=== PATIENT | female | born 1970 | race Hispanic/Latino ===

== ENCOUNTER 2019-06-23 02:16 | Emergency (ER) | payer OTHER ==
[~2019-06-23] VITALS: Ht 162.6 cm; Wt 104.3 kg
[2019-06-23] MEDS ORDERED: NITROGLYCERIN 2% OINT 1 GM PKT TOP ONE (02:30)
[2019-06-23] MEDS ORDERED: ASPIRIN 81 MG CHEW TAB PO ONE (02:30)
[2019-06-23] MEDS ORDERED: FAMOTIDINE 20 MG/2 ML VIAL IV ONE (02:30)
[2019-06-23] MEDS ORDERED: ACETAMINOPHEN 325 MG TAB PO ONE (02:30)
[2019-06-23 02:55] LABS: BASOPHILS % 0.4 % (0.0-1.0); EOSINOPHILS # (AUTO) 0.1 (0.0-0.4); EOSINOPHILS % 1.2 % (0.0-6.0); HEMATOCRIT 38.4 % (34.2-44.1); HEMOGLOBIN 11.8 g/dL (12.0-16.0); LYMPHOCYTES # (AUTO) 1.8 (1.0-3.2); LYMPHOCYTES % 22.5 % (18.0-39.1); MEAN CORPUSCULAR HEMOGLOBIN 24.7 pg (28-32); MEAN CORPUSCULAR HGB CONC 30.7 g/dL (31-35); MEAN CORPUSCULAR VOLUME 80.3 fL (81-99); MONOCYTES # (AUTO) 0.7 (0.2-0.8); MONOCYTES % 8.6 % (4.4-11.3); NEUTROPHILS # (AUTO) 5.4 (2.1-6.9); NEUTROPHILS % 66.9 % (38.7-80.0); PLATELET COUNT 346 x10e3/uL (140-360); RED BLOOD COUNT 4.78 x10e6/uL (3.6-5.1); RED CELL DISTRIBUTION WIDTH 15.9 % (11.7-14.4)
[2019-06-23 03:08] LABS: ALANINE AMINOTRANSFERASE 18 IU/L (0-55); ALBUMIN 3.7 g/dL (3.5-5.0); ALKALINE PHOSPHATASE 63 IU/L (40-150); ANION GAP 12.4 mmol/L (8-16); BLOOD UREA NITROGEN 18 mg/dL (7-26); BUN/CREATININE RATIO 22 (6-25); CALCIUM 9.1 mg/dL (8.4-10.2); CARBON DIOXIDE 26 mmol/L (22-29); CHLORIDE 101 mmol/L (98-107); CREATINE KINASE 110 IU/L (29-168); CREATININE, SERUM 0.82 mg/dL (0.57-1.11); EST GLOMERULAR FILTRATION RATE > 60 ML/MIN (60-); GLUCOSE 123 mg/dL (74-118); POTASSIUM 3.4 mmol/L (3.5-5.1); SODIUM 136 mmol/L (136-145)
--- NOTE | 2019-06-23 04:05 | Diagnostic Imaging Report ---
EXAMINATION: CHEST SINGLE (PORTABLE) INDICATION: Chest pain COMPARISON: None FINDINGS: AP view TUBES and LINES: None. LUNGS: Lungs are well inflated. Lungs are clear. There is no evidence of pneumonia or pulmonary edema. PLEURA: No pleural effusion or pneumothorax. HEART AND MEDIASTINUM: The cardiomediastinal silhouette is unremarkable. BONES AND SOFT TISSUES: No acute osseous lesion. Soft tissues are unremarkable. UPPER ABDOMEN: No free air under the diaphragm. IMPRESSION: No acute thoracic radiographic abnormality. Normal size of the cardiac mediastinal silhouette. Signed by: Huy Nash DO on 06/23/2019 4:02 AM
[2019-06-23 10:11] VITALS: BP 120/84
[2019-06-23 12:24] LABS: CREATINE KINASE MB 1.3 ng/mL (0-5.0)
== END 2019-06-23 10:24 | disposition home or self-care (01) ==
LOC: ER 02:16
DX: R07.89 Other chest pain (principal); K21.0 Gastro-esophageal reflux disease with esophagitis
CPT/HCPCS: 36415; 71045; 80053; 82550; 82553; 84484; 85025; 85379; 93005; 99284

== ENCOUNTER 2020-09-06 14:25 | Emergency (ER) | payer SELFPAY ==
[~2020-09-06] VITALS: Ht 162.6 cm; Wt 104.3 kg
[2020-09-06] MEDS ORDERED: SODIUM CHLORIDE 0.9% 1000ML 1,000 ML IV STA (14:38)
[2020-09-06] MEDS ORDERED: MORPHINE SULFATE INJ 4 MG/ML INJ 1ML IV ONE (14:38)
[2020-09-06] MEDS ORDERED: ONDANSETRON HCL INJ 2MG/ML 2ML 2 MG/ML VIAL IV ONE (14:38)
[2020-09-06] MEDS ORDERED: DIATRIZOATE MEGL/DIATRIZOA SOD 30 ML BTL PO ONE (14:54)
[2020-09-06 15:01] LABS: BASOPHILS % 0.4 % (0.0-1.0); EOSINOPHILS # (AUTO) 0.1 (0.0-0.4); EOSINOPHILS % 1.5 % (0.0-6.0); HEMATOCRIT 37.4 % (34.2-44.1); HEMOGLOBIN 11.4 g/dL (12.0-16.0); LYMPHOCYTES # (AUTO) 1.4 (1.0-3.2); LYMPHOCYTES % 20.2 % (18.0-39.1); MEAN CORPUSCULAR HEMOGLOBIN 24.5 pg (28-32); MEAN CORPUSCULAR HGB CONC 30.5 g/dL (31-35); MEAN CORPUSCULAR VOLUME 80.3 fL (81-99); MONOCYTES # (AUTO) 0.5 (0.2-0.8); MONOCYTES % 7.6 % (4.4-11.3); NEUTROPHILS # (AUTO) 4.7 (2.1-6.9); NEUTROPHILS % 70.2 % (38.7-80.0); PLATELET COUNT 333 x10e3/uL (140-360); RED BLOOD COUNT 4.66 x10e6/uL (3.6-5.1); RED CELL DISTRIBUTION WIDTH 15.7 % (11.7-14.4)
[2020-09-06 15:23] LABS: CLARITY,URINE CLOUDY (CLEAR); COLOR,URINE RED (YELLOW); LEUKOCYTE ESTERASE ,URINE LARGE (NEGATIVE); NITRITE,URINE POSITIVE (NEGATIVE)
[2020-09-06 15:23] LABS: ALANINE AMINOTRANSFERASE 29 IU/L (0-55); ALBUMIN/GLOBULIN RATIO 1.2 (0.8-2.0); ALKALINE PHOSPHATASE 62 IU/L (40-150); ANION GAP 12.7 mmol/L (8-16); BLOOD UREA NITROGEN 19 mg/dL (7-26); BUN/CREATININE RATIO 24 (6-25); CALCIUM 8.6 mg/dL (8.4-10.2); CARBON DIOXIDE 25 mmol/L (22-29); CHLORIDE 104 mmol/L (98-107); EST GLOMERULAR FILTRATION RATE > 60 ML/MIN (60-); GLUCOSE 112 mg/dL (74-118); LIPASE 25 U/L (8-78); POTASSIUM 3.7 mmol/L (3.5-5.1); SODIUM 138 mmol/L (136-145)
[2020-09-06 15:24] LABS: KETONES,URINE 1+ (NEGATIVE); PROTEIN,URINE DIPSTICK >=300 (NEGATIVE); URINE UROBILINOGEN 1 mg/dL (0.2 - 1)
[2020-09-06 15:27] LABS: PREGNANCY TEST, URINE NEGATIVE (NEGATIVE)
[2020-09-06 15:36] LABS: RBC,URINE >50 /HPF (0-5)
[2020-09-06 15:37] LABS: BACTERIA,URINE MODERATE /HPF
[2020-09-06] MEDS ORDERED: IOPAMIDOL 370 MG/ML 200 ML INFUS..BTL INJ ONE (15:51)
[2020-09-06] MEDS ORDERED: SODIUM CHLORIDE 0.9% 50ML 50 ML ONE (15:51)
[2020-09-06 16:00] LABS: CREATINE KINASE 102 IU/L (29-168)
[2020-09-06] MEDS ORDERED: ONDANSETRON HCL INJ 2MG/ML 2ML 2 MG/ML VIAL IV STA (16:41)
[2020-09-06] MEDS ORDERED: MORPHINE SULFATE INJ 4 MG/ML INJ 1ML IV STA (16:41)
[2020-09-06] MEDS ORDERED: KETOROLAC TROMETHAMINE 30 MG/ML VIAL IV STA (16:46)
[2020-09-06] MEDS ORDERED: KEFLEX500 MG PO (20:30)
[2020-09-06] MEDS ORDERED: ULTRAM50 MG PO (20:30)
[2020-09-06 21:00] VITALS: BP 109/62
== END 2020-09-06 21:02 | disposition home or self-care (01) ==
LOC: ER 14:30
DX: R10.31 Right lower quadrant pain (principal); R11.2 Nausea with vomiting, unspecified; I10 Essential (primary) hypertension; D64.9 Anemia, unspecified; F41.9 Anxiety disorder, unspecified
CPT/HCPCS: 36415; 74177; 76830; 76856; 80053; 81001; 81025; 82550; 82553; 83690; 84484; 85025; 93976; 99284; J1885; J2270; J2405; J7030; Q9967

== ENCOUNTER 2023-03-19 06:47 | Emergency (ER) | payer OTHER ==
[~2023-03-19] VITALS: Ht 162.6 cm; Wt 104.3 kg
[~2023-03-19 06:47] MED LIST: KEFLEX500 MG PO; ULTRAM50 MG PO
[2023-03-19] MEDS ORDERED: LIDOCAINE VISC 2% SOLN 15 ML UDC PO STA ×2 (07:02→07:13)
[2023-03-19] MEDS ORDERED: MAGNESIUM/ALUMINUM/SIMETHICONE 30 ML UDC PO STA (07:02)
[2023-03-19] MEDS ORDERED: SUCRALFATE 1 GM TAB PO STA (07:02)
[2023-03-19] MEDS ORDERED: SODIUM CHLORIDE 0.9% 1000ML 1,000 ML IV ONE (07:15)
[2023-03-19 07:25] LABS: BASOPHILS % 0.8 % (0.0-1.0); EOSINOPHILS # (AUTO) 0.1 (0.0-0.4); EOSINOPHILS % 2.2 % (0.0-6.0); HEMATOCRIT 40.4 % (34.2-44.1); HEMOGLOBIN 12.9 g/dL (12.0-16.0); LYMPHOCYTES # (AUTO) 1.3 (1.0-3.2); LYMPHOCYTES % 25.6 % (18.0-39.1); MEAN CORPUSCULAR HEMOGLOBIN 27.2 pg (28-32); MEAN CORPUSCULAR HGB CONC 31.9 g/dL (31-35); MEAN CORPUSCULAR VOLUME 85.2 fL (81-99); MONOCYTES # (AUTO) 0.4 (0.2-0.8); MONOCYTES % 8.2 % (4.4-11.3); NEUTROPHILS # (AUTO) 3.1 (2.1-6.9); PLATELET COUNT 276 x10e3/uL (140-360); RED BLOOD COUNT 4.74 x10e6/uL (3.6-5.1); RED CELL DISTRIBUTION WIDTH 13.9 % (11.7-14.4)
[2023-03-19 07:29] LABS: CLARITY,URINE CLEAR (CLEAR); COLOR,URINE YELLOW (YELLOW)
[2023-03-19 07:30] LABS: KETONES,URINE NEGATIVE (NEGATIVE); LEUKOCYTE ESTERASE ,URINE NEGATIVE (NEGATIVE); NITRITE,URINE NEGATIVE (NEGATIVE); PROTEIN,URINE DIPSTICK NEGATIVE (NEGATIVE); URINE UROBILINOGEN 0.2 mg/dL (0.2 - 1)
[2023-03-19 07:37] LABS: BACTERIA,URINE FEW /HPF; EPITHELIAL CELLS,URINE MODERATE /LPF; RBC,URINE 0-5 /HPF (0-5); WBC,URINE (MAN) 0-5 /HPF (0-5)
[2023-03-19] MEDS ORDERED: DONNATAL/LIDOCAINE/MAALOX 30 ML SUSP PO ONE (07:45)
[2023-03-19 07:47] LABS: ALBUMIN/GLOBULIN RATIO 1.3 (0.8-2.0); ANION GAP 13.7 mmol/L (8-16); CALCIUM 8.9 mg/dL (8.4-10.2); CREATININE, SERUM 0.78 mg/dL (0.57-1.11); POTASSIUM 3.7 mmol/L (3.5-5.1)
[2023-03-19] MEDS ORDERED: IOPAMIDOL 370 MG/ML 100 ML INFUS..BTL INJ ONE (10:02)
[2023-03-19] MEDS ORDERED: ACID CONTROLLER10 MG PO (11:25)
[2023-03-19] MEDS ORDERED: CARAFATE1 GM PO (11:25)
[2023-03-19 11:42] VITALS: O2SAT 99
== END 2023-03-19 11:44 | disposition home or self-care (01) ==
LOC: ER 06:55
DX: R10.13 Epigastric pain (principal); K29.70 Gastritis, unspecified, without bleeding; I10 Essential (primary) hypertension; D64.9 Anemia, unspecified; F41.9 Anxiety disorder, unspecified
CPT/HCPCS: 36415; 74177; 80053; 81001; 83690; 85025; 93005; 99284; J7030; Q9967